=== PATIENT | female | born 1940 | race Caucasian/White ===

== ENCOUNTER 2020-07-28 10:24 | Observation (INO) | payer MEDICARE ==
[~2020-07-28] VITALS: Ht 154.9 cm; Wt 76.6 kg
[2020-07-28] MEDS ORDERED: IV NORMAL SALINE 1,000ML 1,000 ML IV SCH (11:00)
--- NOTE | 2020-07-28 11:02 | PHYS DOC ---
Past History Past Medical History: A-Fib, CAD, Hypertension Past Surgical History: Other Additional Past Surgical Histo: pacemaker Alcohol Use: Occasionally Additional Alcohol Information: wine Adult General Chief Complaint Chief Complaint: SHORTNESS OF BREATH HPI HPI Patient is a-year-old female who presents via EMS for Covid symptoms. States she was diagnosed with Covid 9 days ago after finding out her son who lives with her tested positive. She had been asymptomatic until approximately 4 days ago. Current symptoms include generalized fatigue, postnasal drip, development of a productive cough, nausea, x2 episodes of nonbloody nonbilious emesis, and looser stools than usual. Denies any recent steroids, antibiotics or other changes in home medications. Denies any reportable fever greater than 100.4, syncope, chest pain, abdominal pain, urinary symptoms. Patient does have a history of atrial fibrillation for which a pacemaker was placed, she has no prior cardiac stents or other invasive intervention, she is currently on Eliquis daily for this. Review of Systems Review of Systems Fourteen body systems of review of systems have been reviewed. See HPI for pertinent positives and negative responses, other owen all other systems are negative, non-pertinent or non-contributory Allergies Allergies Allergies Coded Allergies Type Severity Reaction Last Updated Verified Penicillins Allergy Unknown 07/28/20 Yes Physical Exam Physical Exam Constitutional: Pt is oriented to person, place, and time. Pt appears well-developed and well- nourished. HEENT: Head: Normocephalic and atraumatic. External ears unremarkable Conjunctivae and EOM are normal. Pupils are equal, round, and reactive to light. Oropharynx is clear and moist. Postnasal drip present No hematomas or lacerations or abrasions to face or scalp OP clear, no blood, no malocclusion, dentition intact Nares clear, no nasal septal hematoma Midface stable Neck: C-spine midline nontender, no step-offs Cardiovascular: Normal rate, regular rhythm and normal heart sounds. Pulmonary/Chest: Effort normal, coarse breath sounds bilaterally with slightly diminished sounds and increased crackles in left lower lobe. No respiratory distress. No wheezes. Abdominal: Soft. Bowel sounds are normal. Pt exhibits no distension. There is no tenderness. Musculoskeletal: No bony tenderness to extremities, no deformities, full ROM extremities Chest wall stable Pelvis stable and non-tender No vertebral TTP and spine without stepoffs Neurological: Pt is alert and oriented to person, place, and time. Moving all extremities willfully, able to wiggle all fingers and toes Alert and oriented x 3 Sensation grossly intact Skin: Skin is warm and dry. No abrasions, no lacerations Psychiatric: Behavior is appropriate for situation Current Patient Data Vital Signs Vital Signs Date Time Temp Pulse Resp B/P (MAP) Pulse Ox O2 Delivery O2 Flow Rate FiO2 07/28/20 10:31 98.4 67 16 124/83 (97) 88 Room Air Lab Results Laboratory Tests Test 07/28/20 10:35 07/28/20 10:59 White Blood Count 6.7 x10^3/uL (4.0-11.0) Red Blood Count 3.88 x10^6/uL (3.50-5.40) Hemoglobin 12.2 g/dL (12.0-15.5) Hematocrit 37.0 % (36.0-47.0) Mean Corpuscular Volume 95 fL (79-100) Mean Corpuscular Hemoglobin 32 pg (25-35) Mean Corpuscular Hemoglobin Concent 33 g/dL (31-37) Red Cell Distribution Width 13.0 % (11.5-14.5) Platelet Count 306 x10^3/uL (140-400) Neutrophils (%) (Auto) 64 % (31-73) Lymphocytes (%) (Auto) 26 % (24-48) Monocytes (%) (Auto) 10 % (0-9) Eosinophils (%) (Auto) 0 % (0-3) Basophils (%) (Auto) 0 % (0-3) Neutrophils # (Auto) 4.3 x10^3uL (1.8-7.7) Lymphocytes # (Auto) 1.7 x10^3/uL (1.0-4.8) Monocytes # (Auto) 0.7 x10^3/uL (0.0-1.1) Eosinophils # (Auto) 0.0 x10^3/uL (0.0-0.7) Basophils # (Auto) 0.0 x10^3/uL (0.0-0.2) Sodium Level 134 mmol/L (136-145) Potassium Level 3.6 mmol/L (3.5-5.1) Chloride Level 98 mmol/L (98-107) Carbon Dioxide Level 25 mmol/L (21-32) Anion Gap 11 (6-14) Blood Urea Nitrogen 12 mg/dL (7-20) Creatinine 1.0 mg/dL (0.6-1.0) Estimated GFR (Cockcroft-Gault) 53.5 BUN/Creatinine Ratio 12 (6-20) Glucose Level 112 mg/dL (70-99) Lactic Acid Level 1.7 mmol/L (0.4-2.0) Calcium Level 8.7 mg/dL (8.5-10.1) Total Bilirubin 0.4 mg/dL (0.2-1.0) Aspartate Amino Transf (AST/SGOT) 26 U/L (15-37) Alanine Aminotransferase (ALT/SGPT) 18 U/L (14-59) Alkaline Phosphatase 66 U/L (46-116) Troponin I Quantitative < 0.017 ng/mL (0-0.055) WM-Jts-W-Type Natriuretic Peptide 182 pg/mL (0-449) Total Protein 7.1 g/dL (6.4-8.2) Albumin 3.0 g/dL (3.4-5.0) Albumin/Globulin Ratio 0.7 (1.0-1.7) Blood Gas pH 7.42 (7.35-7.45) Blood Gas PCO2 31 mmHg (35-45) Blood Gas PO2 85 mmHg (71-100) Blood Gas HCO3 20 mmol/L (22-26) Arterial Bld O2 Saturation (Calc) 97 % (92-99) FiO2 21 % EKG EKG EKG ordered and interpreted by myself at 1057 hrs. as sinus rhythm at 62 bpm, prolonged FL interval at 212 otherwise unremarkable intervals, left axis deviation, no acute ischemic findings, no STEMI Radiology/Procedures Radiology/Procedures EXAM: XR CHEST 1V 07/28/2020 11:04 AM CLINICAL INDICATION: Hypoxia COMPARISON: None TECHNIQUE: AP upright view of the chest FINDINGS: Dual-lead pacemaker is present. There are focal airspace opacities in the lateral left lung base. The right lung is clear. No pleural effusion or pneumothorax. No acute osseous abnormality. IMPRESSION: Left basilar opacities suspicious for pneumonia. Electronically signed by: Niki Anderson MD (07/28/2020 11:56 AM) [id number] Heart Score HEART Score for Chest Pain: HEART Score for Chest Pain Response (Comments) Value History Slighlty/Non-Suspicious 0 ECG Normal 0 Age > 65 2 Risk Factors >3 Risk Factors or Hx CAD 2 Troponin < Normal Limit 0 Total 4 Risk Factors: Risk Factors: DM, Current or recent (<one month) smoker, HTN, HLP, family history of CAD, obesity. Risk Scores: Risk Factors: DM, Current or recent (<one month) smoker, HTN, HLP, family history of CAD, obesity. Course & Med Decision Making Course & Med Decision Making Pertinent Labs and Imaging studies reviewed. (See chart for details) Discussed most likely diagnosis of left lower lobe pneumonia in the setting of known COVID-19 positive individual. She is clinically dehydrated. She is also hypoxic on room air likely due to acute condition. Patient responded to ER intervention that included IV fluid rehydration, supplemental oxygen, and IV antibiotics for her pneumonia. Nonetheless, she is not fit for discharge home and will require admission. I discussed case with on-call hospitalist who agreed for admission I updated patient on proposed plan of care, she was amenable to plan as stated for admission and continued inpatient medical management. All questions and concerns addressed prior to ER transportation to [facility] Critical Care Time This patient required critical care. Due to the fact that the patient required a significant amount of one on one physician - patient contact time, ordering and review of studies, arranging urgent treatment with development of a management plan, evaluation of patients response to treatment with frequent reassessments, and discussions with other providers this patient required critical care time in excess of 30 minutes. Critical care time was indicated due to the inherent instability and/or potential for instability in this patient. The critical care time that is allocated to this patient is above and beyond any time spent on any other billable procedures performed on this patient. Dragon Disclaimer Dragon Disclaimer This electronic medical record was generated, in whole or in part, using a voice recognition dictation system. Departure Departure: Impression: Primary Impression: LLL pneumonia Additional Impressions: COVID-19 Nausea vomiting and diarrhea Hypoxia Afib Disposition: 09 ADMITTED INPT THIS HOSP Admitting Physician: Preston Ray Condition: STABLE Referrals: PCP,UNKNOWN (PCP) Problem Qualifiers JOCELINE PAYNE DO Jul 28, 2020 11:02
[2020-07-28 11:13] LABS: BASO % 0 % (0-3); EOS % 0 % (0-3); HEMOGLOBIN 12.2 g/dL (12.0-15.5); LYMPH # 1.7 x10^3/uL (1.0-4.8); LYMPH % 26 % (24-48); MEAN CORPUSCULAR HEMOGLOBIN 32 pg (25-35); MEAN CORPUSCULAR HGB CONC 33 g/dL (31-37); MEAN CORPUSCULAR VOLUME 95 fL (79-100); MONO # 0.7 x10^3/uL (0.0-1.1); MONO % 10 % (0-9); NEUT # 4.3 x10^3uL (1.8-7.7); NEUT % 64 % (31-73); PLATELET COUNT 306 x10^3/uL (140-400); RED BLOOD COUNT 3.88 x10^6/uL (3.50-5.40); WHITE BLOOD COUNT 6.7 x10^3/uL (4.0-11.0)
[2020-07-28] MEDS ORDERED: ASPIRIN CHEWABLE 81 MG TABLET. PO ONE (11:15)
[2020-07-28 11:20] LABS: CALCIUM 8.7 mg/dL (8.5-10.1); GFR 53.5; POTASSIUM 3.6 mmol/L (3.5-5.1)
[2020-07-28 11:32] LABS: ALBUMIN/GLOBULIN RATIO 0.7 (1.0-1.7); TOTAL BILIRUBIN 0.4 mg/dL (0.2-1.0); TOTAL PROTEIN 7.1 g/dL (6.4-8.2)
--- NOTE | 2020-07-28 11:59 | RAD ---
EXAM: XR CHEST 1V 07/28/2020 11:04 AM CLINICAL INDICATION: Hypoxia COMPARISON: None TECHNIQUE: AP upright view of the chest FINDINGS: Dual-lead pacemaker is present. There are focal airspace opacities in the lateral left darrius g base. The right lung is clear. No pleural effusion or pneumothorax. No acute osseous abnormality. IMPRESSION: Left basilar opacities suspicious for pneumonia. Electronically signed by: Niki Anderson MD (07/28/2020 11:56 AM) [id number]
[2020-07-28 12:10] LABS: BGAS PH 7.42 (7.35-7.45)
--- NOTE | 2020-07-28 12:19 | EKG ---
[address] [address] Test Date: 2020-07-28 Test Time: 10:47:51 Pat Name: Adilia Moreno Department: Room: Gender: F Sales Coach: : 1940 Requested By: JOCELINE PAYNE Order Number: [id number] Reading MD: Measurements Intervals Taylor Rate: 62 P: 28 VA: 212 QRS: -48 QRSD: 114 T: 44 QT: 432 QTc: 441 Interpretive Statements SINUS RHYTHM ABNORMAL LEFT AXIS DEVIATION LEFT ANTERIOR FASCICULAR BLOCK LEFT VENTRICULAR HYPERTROPHY QRS(T) CONTOUR ABNORMALITY CONSIDER ANTEROSEPTAL MYOCARDIAL DAMAGE ABNORMAL ECG RI6.02 No previous ECG available for comparison
[2020-07-28] MEDS ORDERED: AZITHROMYCIN 500 MG VIAL. IV ONE (12:21)
[2020-07-28] MEDS ORDERED: IV NORMAL SALINE 50ML 50 ML ONE (12:21)
[2020-07-28] MEDS ORDERED: IV NORMAL SALINE 250ML 250 ML ONE (12:21)
[2020-07-28] MEDS ORDERED: cefTRIAXone SODIUM 1 GM VIAL ONE (12:21)
[2020-07-28] MEDS ORDERED: ONDANSETRON PF 4 MG/2 ML VIAL. IVP PRN (12:30)
[2020-07-28] MEDS ORDERED: AZITHROMYCIN 500 MG in IV NORMAL SALINE 250ML 250 ML IV ONE (12:30)
[2020-07-28] MEDS ORDERED: ACETAMINOPHEN 325 MG TABLET PO PRN (12:30)
--- NOTE | 2020-07-28 13:12 | HP ---
ADMIT DATE: 07/28/2020 ADMISSION HISTORY AND PHYSICAL ATTENDING PHYSICIAN: Dr. Tabor CHIEF COMPLAINT: Shortness of breath and congestion. HISTORY OF PRESENT ILLNESS: The patient is a 80-year-old female admitted through the ED with community-acquired pneumonia. She was diagnosed 9 days ago with COVID-19 after her son, who lives with her, was tested positive. She was relatively asymptomatic until about 4 days ago. Her saturations are diminished. She was concerned given her underlying cardiac issues with atrial fibrillation. She has a permanent pacemaker. She was found to have a small infiltrate in the left periphery. She is admitted then with community-acquired pneumonia and COVID positive diagnosis 9 days ago. PAST MEDICAL HISTORY: Significant for paroxysmal atrial fibrillation, coronary artery disease, essential hypertension, and permanent pacemaker. SOCIAL HISTORY: She is a nonsmoker. She drinks socially. ALLERGIES: Include PENICILLIN. CURRENT MEDICINES: Being updated. I am getting that reviewed from medicines and dosages. FAMILY HISTORY: Father at age 66 with complications of lung disease. Mom lived to age 90. She is retired. She had recent right knee surgery. REVIEW OF SYSTEMS: Significant for the pulmonary symptoms that brought her here. She was asymptomatic until several days ago. She has had minimal cough, congestion, and some dyspnea with minimal exertion. No chest pain or palpitation. All other systems reviewed and determined to be negative. PHYSICAL EXAMINATION: GENERAL: When I saw her, this is a pleasant, middle-aged female. INITIAL VITAL SIGNS: In the ED showed a blood pressure 113/58, pulse 67 and regular, temperature 98.4 degrees Fahrenheit, oxygen saturation 99% on 2 liters of nasal cannula. HEENT: Head is without trauma. Pupils are reactive. Sclerae nonicteric. Oropharynx is clear. NECK: Supple, no bruits identified. LUNGS: Good breath sounds. No rhonchi or wheezing. CARDIOVASCULAR: Showed regular heart tones. No gallops. ABDOMEN: Soft. EXTREMITIES: Showed recent scar from right knee surgery. There is no edema. SKIN: Warm and dry. NEUROLOGIC: Focally intact. Speech was fluent. Meal Room Hand symmetrical. PERTINENT LABORATORY STUDIES: The hemoglobin is 12.2 g/dL with white count of 6700. Chemistry panel, stable BUN, creatinine, and electrolytes. Creatinine is 1.0 mg percent. Cardiac enzymes negative for coronary ischemia. Lactic acid was 1.7. Chest x-ray done earlier this morning in the ED showed left basilar opacities consistent with community-acquired pneumonia. ASSESSMENT: 1. A 80-year-old female with community-acquired pneumonia. 2. Recent COVID exposure with positive swab, whether or not this is COVID pneumonia or bacterial pneumonia, remains to be seen. 3. Paroxysmal atrial fibrillation. 4. Permanent pacemaker. 5. Degenerative arthritis with recent knee surgery. PLAN: 1. Admit to the inpatient unit. 2. Intravenous Rocephin and Zithromax has been ordered. 3. We are finding out her home medications to be continued. 4. Diet as tolerated. NATALIIA TABOR MD DR: SEAN/fadumo JOB#: [id number] / [id number]
[2020-07-28 15:57] VITALS: BP 112/55
--- NOTE | 2020-07-28 16:05 | NUR ---
NSG NOTE; ADMISSION ADMIT TO ROOM 124 AT 1500 VIA CART ACCOMP BY EMS PERSONNEL STATES POSITIVE COVID TEST ON 07/24/20 AND HAS BEEN GETTING INCREASINGLY SICKER. STATES LAST FEW DAYS HAS DEVELOPED FEVER, FATUGUE, DIARRHEA, HYPOXIA, AND TASTE CHANGES CALLED EMS FOR TRANSPORT TO ED FOR O2 SAT IN THE 80s AT HOME ON ROOM AIR
[2020-07-28] MEDS ORDERED: LOSA25TA PO (16:52)
[2020-07-28] MEDS ORDERED: HYDR-3068 PO (16:52)
[2020-07-28] MEDS ORDERED: ATORVASTATIN CA80 MG PO (16:52)
[2020-07-28] MEDS ORDERED: GABA-585 PO (16:52)
[2020-07-28] MEDS ORDERED: DOFE500C4 PO (16:52)
[2020-07-28] MEDS ORDERED: METO-239 PO (16:52)
[2020-07-28] MEDS ORDERED: APIX5TAB3 PO (16:52)
[2020-07-28] MEDS ORDERED: HYDROcodone/APAP 5/325MG 1 TAB TABLET PO PRN (17:30)
[2020-07-28] MEDS: ACETAMINOPHEN 500 MG TABLET PO PRN (17:57)
[2020-07-28 19:40] VITALS: BP 116/52
[2020-07-28] MEDS: LACTOBACILLUS RHAMNOSUS GG 1 CAPSULE. PO SCH (19:54)
[2020-07-28] MEDS: DOFETILIDE 250 MCG CAPSULE PO SCH (19:55)
[2020-07-28] MEDS: APIXABAN 5 MG TABLET. PO SCH (19:55)
[2020-07-28] MEDS ORDERED: GABAPENTIN 100 MG CAPSULE. PO SCH (21:00)
[2020-07-28] MEDS ORDERED: ATORVASTATIN CALCIUM 20 MG TABLET PO SCH (21:00)
[2020-07-28 22:00] VITALS: BP 109/64
[2020-07-29] MEDS: ACETAMINOPHEN 500 MG TABLET PO PRN (00:15)
[2020-07-29 06:07] VITALS: BP 101/66
[2020-07-29] MEDS: LACTOBACILLUS RHAMNOSUS GG 1 CAPSULE. PO SCH (07:43)
[2020-07-29] MEDS: APIXABAN 5 MG TABLET. PO SCH (07:44)
[2020-07-29] MEDS: DOFETILIDE 250 MCG CAPSULE PO SCH (08:44)
[2020-07-29] MEDS ORDERED: LOSARTAN 25 MG TABLET. PO SCH (09:00)
[2020-07-29] MEDS ORDERED: METOPROLOL SUCC 24HR ER 25 MG TAB.ER.24H. PO SCH (09:00)
[2020-07-29 11:26] VITALS: BP 142/75
[2020-07-29] MEDS ORDERED: AZITHROMYCIN 500 MG in IV NORMAL SALINE 250ML 250 ML IV SCH (12:30)
--- NOTE | 2020-07-29 12:42 | DS ---
DATE OF DISCHARGE: 07/29/2020 ATTENDING PHYSICIAN: Dr. Nataliia Tabor FINAL DISCHARGE DIAGNOSES: 1. Community-acquired pneumonia. 2. Recent COVID-19 exposure. 3. Small infiltrate, left lower lobe. 4. Paroxysmal atrial fibrillation. 5. Coronary artery disease. 6. Essential hypertension. 7. Permanent pacemaker. 8. Recent degenerative joint disease with a right total knee arthroplasty. HISTORY AND PHYSICAL: This pleasant 80-year-old female who was admitted to the ED with community-acquired pneumonia. Nine days ago, she had a positive COVID swab after some testing positive. She has been fairly asymptomatic. Her saturation was slightly diminished. They came up with supplemental oxygen. She was doing better. She was admitted overnight for observation and initiation of antibiotic therapy. She had a small infiltrate in the left peripheral lower lobe. PAST MEDICAL HISTORY: Significant for atrial fibrillation, permanent pacemaker. She is on chronic medications and anticoagulation. PHYSICAL EXAMINATION: Please see the dictated note. PERTINENT LABORATORY AND X-RAY STUDIES: Admission hemoglobin was 12.2 g/dL, white count 6700. Electrolytes within normal range. Blood sugar adequate. Troponin was nonischemic. Chest x-ray showed normal heart size, permanent pacemaker, small patchy infiltrate in the left peripheral lower lobe. COURSE IN THE HOSPITAL: The patient was admitted. She initially has supplemental oxygen. We were able to wean her off the oxygen with improvement. Her saturations were 97% on room air. Home meds were continued. She did well. By the second hospital day, her vital signs are quite stable. She was afebrile with a temperature 96.5 degrees Fahrenheit, pulse is 72 and regular, blood pressure 142/74 mmHg, oxygen saturation 97% on room air. Her lungs showed good breath sounds without any respiratory distress. She wanted to go home for [place]. I felt this is reasonable. I therefore wrote a script for cephalexin 500 mg p.o. t.i.d. for 6 more days, Zithromax 500 p.o. daily for 6 days. Her other home meds are unchanged, they include the following: She should continue her Eliquis 5 mg b.i.d., Lipitor 80 mg daily, Tikosyn 500 mg b.i.d., Neurontin, losartan 25 mg daily and metoprolol 25 mg ER daily. She will follow up with her regular scheduled visit with her primary care physician. Once again, the patient was discharged from our hospital in stable condition with explicit instructions and followup care. NATALIIA TABOR MD DR: SEAN/fdaumo JOB#: [id number] / [id number]
== END 2020-07-29 12:21 | disposition home or self-care (01) ==
LOC: ER 10:24 → INTOOBSV 12:26 → 1 SOUTH 12:26
PROVIDERS: ADMIT Hospitalist; ATTEND Hospitalist
DX: U07.1 COVID-19 (principal); J18.9 Pneumonia, unspecified organism; I48.0 Paroxysmal atrial fibrillation; I25.10 Atherosclerotic heart disease of native coronary artery without angina pectoris; I10 Essential (primary) hypertension; M19.90 Unspecified osteoarthritis, unspecified site; J12.89 Other viral pneumonia; R09.02 Hypoxemia; Z95.0 Presence of cardiac pacemaker; Z96.651 Presence of right artificial knee joint; Z79.899 Other long term (current) drug therapy; Z79.01 Long term (current) use of anticoagulants
CPT/HCPCS: 36415; 36600; 71045; 80053; 82803; 83605; 83880; 84484; 85025; 87040; 93005; 96361; 96365; 96367; 99285; G0378; J0456; J0696; J7030; J7050; G0379; 99291-25

== ENCOUNTER 2021-11-20 11:17 | Emergency (ER) | payer MEDICARE ==
[~2021-11-20] VITALS: Ht 154.9 cm; Wt 76.6 kg
[~2021-11-20 11:17] MED LIST: APIX5TAB3 PO; ATORVASTATIN CA80 MG PO; DOFE500C4 PO; GABA-585 PO; HYDR-3068 PO; LOSA25TA PO; METO-239 PO
[2021-11-20 11:25] VITALS: BP 99/79
--- NOTE | 2021-11-20 12:03 | PHYS DOC ---
Past History Past Medical History: A-Fib, CAD, Hypertension Past Surgical History: Knee Replacement, Other Additional Past Surgical Histo: pacemaker, bilateral knee replacements Alcohol Use: None General Adult EDM: Chief Complaint: PAIN ON URINATION HPI: HPI: Patient is a 81-year-old female coming in for dysuria and urinary frequency. Patient states been going on for about 2 days. Denies any fevers, abdominal pain, flank pain, nausea or vomiting. Denies any history of urinary tract infections. States she has not been drinking much water recently and that her urine is a prior yellow. Review of Systems: Review of Systems: All other systems within normal limits except for as noted in the HPI Allergies: Allergies: Allergies Coded Allergies Type Severity Reaction Last Updated Verified Penicillins Allergy Unknown 07/28/20 Yes Physical Exam: PE: Constitutional: Well developed, well nourished, no acute distress, non-toxic appearance. [] HENT: Normocephalic, atraumatic, bilateral external ears normal, nose normal. [] Eyes: PERRLA, conjunctiva normal, no discharge. [] Neck: No rigidity, supple, no stridor. [] Cardiovascular: Regular rate and rhythm, brisk cap refill [] Lungs & Thorax: Non labored symmetric respirations, no tachypnea or respiratory distress [] Abdomen: Soft, nondistended. Skin: Warm, dry, no erythema, no rash. [] Back: Unremarkable Extremities: No deformities, range of motion grossly intact, no lower extremity edema [] Neurologic: Alert and oriented X 3, no focal deficits noted. [] Psychologic: Affect normal, judgement normal, mood normal. [] Current Patient Data: Vital Signs: Vital Signs Date Time Temp Pulse Resp B/P (MAP) Pulse Ox O2 Delivery O2 Flow Rate FiO2 11/20/21 11:25 98.9 80 18 99/79 (86) 97 EKG: EKG: [] Radiology/Procedures: Radiology/Procedures: [] Heart Score: C/O Chest Pain: No Risk Factors: Risk Factors: DM, Current or recent (<one month) smoker, HTN, HLP, family history of CAD, obesity. Risk Scores: Score 0 - 3: 2.5% MACE over next 6 weeks - Discharge Home Score 4 - 6: 20.3% MACE over next 6 weeks - Admit for Clinical Observation Score 7 - 10: 72.7% MACE over next 6 weeks - Early Invasive Strategies Course & Med Decision Making: Course & Med Decision Making Pertinent Labs and Imaging studies reviewed. (See chart for details) [] Francisco Disclaimer: Francisco Disclaimer: This electronic medical record was generated, in whole or in part, using a voice recognition dictation system. Departure Departure: Impression: Primary Impression: UTI (urinary tract infection) Disposition: HOME / SELF CARE / HOMELESS Condition: STABLE Referrals: RENE BANDA MD (PCP) Patient Instructions: Urinary Tract Infection Scripts Phenazopyridine Hcl (PYRIDIUM) 200 Mg Tablet 1 TAB PO TID for urinary discomfort for 2 Days, #6 TAB 0 Refills Prov: NI CRAMER MD 11/20/21 Nitrofurantoin Monohyd/M-Cryst (MACROBID 100 MG CAPSULE) 100 Mg Capsule 1 CAP PO BID for antibiotic for 7 Days, #14 CAP 0 Refills Prov: NI CRAMER MD 11/20/21 NI CRAMER MD Nov 20, 2021 12:03
[2021-11-20 12:05] LABS: BACTERIA,URINE FEW /HPF (0-FEW); CLARITY,URINE TURBID; COLOR,URINE YELLOW; GLUCOSE,URINE NEG (NEG); NITRITE,URINE NEG (NEG); RBC,URINE 20-40 /HPF (0-2); SQUAMOUS EPITHELIAL CELL,UR FEW /LPF; UROBILINOGEN,URINE 0.2 mg/dL (0.2 mg/dL); WBC,URINE >40 /HPF (0-4)
[2021-11-20] MEDS ORDERED: PHEN-318 PO (12:14)
[2021-11-20] MEDS ORDERED: NITR100C62 PO (12:14)
[2021-11-20] MEDS ORDERED: PHENAZOPYRIDINE 200 MG TABLET. PO ONE (12:30)
[2021-11-20] MEDS ORDERED: NITROFURANTOIN MONOHYD/M-CRYST 100 MG CAPSULE. PO ONE ×2 (12:30→12:33)
[2021-11-20] MEDS ORDERED: PHENAZOPYRIDINE 200 MG TABLET. ONE (12:34)
== END 2021-11-20 12:40 | disposition home or self-care (01) ==
LOC: ER 11:17
DX: N39.0 Urinary tract infection, site not specified (principal); I48.91 Unspecified atrial fibrillation; I25.10 Atherosclerotic heart disease of native coronary artery without angina pectoris; I10 Essential (primary) hypertension; Z96.653 Presence of artificial knee joint, bilateral; Z95.0 Presence of cardiac pacemaker; Z88.0 Allergy status to penicillin
CPT/HCPCS: 81001; 87086; 99283